=== PATIENT | male | born 1980 | race Two or more races ===

== ENCOUNTER 2024-05-29 00:06 | Emergency (ER) | payer MEDICAID ==
[~2024-05-29] VITALS: Ht 183.5 cm; Wt 86.3 kg
[2024-05-29 00:25] VITALS: BP 150/100; PULSE 98; RESP 13; TEMP 98.2; O2SAT 96
== END 2024-05-29 04:30 | disposition home or self-care (01) ==
LOC: EDBD 00:06 → ER 00:06
DX: T40.601A Poisoning by unspecified narcotics, accidental (unintentional), initial encounter (principal); F19.10 Other psychoactive substance abuse, uncomplicated; F17.210 Nicotine dependence, cigarettes, uncomplicated; Y92.89 Other specified places as the place of occurrence of the external cause